=== PATIENT | male | born 1970 | race African-American/Black ===

== ENCOUNTER 2021-11-07 12:36 | Outpatient (CLI) | payer OTHER ==
[2021-11-07 12:58] LABS: White Blood Cell (WBC) Count 7.9 thou/uL (4.8-10.8)
[2021-11-07 13:11] LABS: Cardiac Risk 5.1 (Less than 4.5); Cholesterol 194 mg/dl (< 200 Desired); HDL Cholesterol 38 mg/dL (>60 Neg Risk); LDL Cholesterol, Calculated 146 mg/dL; Potassium 3.5 mmol/L (3.5-5.1); Triglycerides 51 mg/dL (Less than 150)
== END 2021-11-07 12:37 | disposition home or self-care (01) ==
LOC: BURLAB 12:36
PROVIDERS: ATTEND Family Medicine
DX: E78.5 Hyperlipidemia, unspecified (principal); E87.6 Hypokalemia; D72.829 Elevated white blood cell count, unspecified
CPT/HCPCS: 36415; 80061; 84132; 85048